=== PATIENT | female | born 1980 | race Caucasian/White ===

== ENCOUNTER 2017-10-02 03:33 | Observation (INO) | payer BC ==
[2017-10-02 04:41] VITALS: BMI 19.8
--- NOTE | 2017-10-02 04:50 | PDOC ---
History of Present Illness - General History Source: Patient Exam Limitations: No Limitations - History of Present Illness Initial Comments: 10/02/17 04:59 The patient is a 36 year old female with no significant PMH who presents to the emergency department with increasing right rib pain and shortness of breath within the past week. She describes her pain as localized right under the lower right ribs with radiation to the middle of her right clavicle. She notes her pain is aggravated by lying down and notes an associated increased difficulty expiring air from her lungs. Of note, the patient reports getting a liver biopsy 9 days ago for evaluation of autoimmune diseases. The patient denies chest pain, headache and dizziness. Denies fever, chills, nausea, vomit, diarrhea and constipation. Denies dysuria, frequency, urgency and hematuria. Allergies: Gatifloxacin Past surgical history: None reported. Social history: No reported cigarette, alcohol, or drug use. PCP: None reported. <Mehran Borges - Last Filed: 10/02/17 04:59> - General History Source: Patient <Vasyl Richardson - Last Filed: 10/02/17 19:27> - General Chief Complaint: Shortness of Breath Stated Complaint: S.O.B. Time Seen by Provider: 10/02/17 04:43 Past History <Mehran Borges - Last Filed: 10/02/17 04:59> - Past Medical History Cardiac Disorders: Yes (Mitral valve prolapse) COPD: No Other medical history: Ciliac disease, MTHFR (methyline tetra hydro folate reductase) - Suicide/Smoking/Psychosocial Hx Smoking History: Never smoked Have you smoked in the past 12 months: No Information on smoking cessation initiated: No Hx Alcohol Use: No Drug/Substance Use Hx: No Substance Use Type: None <Vasyl Richardson - Last Filed: 10/02/17 19:27> - Past Medical History Allergies/Adverse Reactions: Allergies Allergy/AdvReac Type Severity Reaction Status Date / Time gatifloxacin [From Tequin] Allergy Severe Hives Verified 10/02/17 04:36 Home Medications: Ambulatory Orders Ferrous Sulfate, Dried [Iron] 159 mg PO DAILY 10/02/17 Review of Systems - Review of Systems Able to Perform ROS?: Yes Comments:: 10/02/17 05:00 CONSTITUTIONAL: Absent: fever, chills, diaphoresis, generalized weakness, malaise, loss of appetite HEENT: Absent: rhinorrhea, nasal congestion, throat pain, throat swelling, difficulty swallowing, mouth swelling, ear pain, eye pain, visual Changes CARDIOVASCULAR: Absent: chest pain, syncope, palpitations, irregular heart rate, lightheadedness , peripheral edema RESPIRATORY: (+) Shortness of breath. Absent: cough, orthopnea, wheezing, stridor, hemoptysis GASTROINTESTINAL: Absent: abdominal pain, abdominal distension, nausea, vomiting, diarrhea, constipation, melena, hematochezia GENITOURINARY: Absent: dysuria, frequency, urgency, hesitancy, hematuria, flank pain, genital pain MUSCULOSKELETAL: (+) Pain right under the lower right rib with radiation to the middle of the right clavicle. Absent: myalgia, arthralgia, joint swelling SKIN: Absent: rash, itching, pallor HEMATOLOGIC/IMMUNOLOGIC: Absent: easy bleeding, easy bruising, lymphadenopathy, frequent infections ENDOCRINE: Absent: unexplained weight gain, unexplained weight loss, heat intolerance, cold intolerance NEUROLOGIC: Absent: headache, focal weakness or paresthesias, dizziness, unsteady gait, seizure, mental status changes, bladder or bowel incontinence PSYCHIATRIC: Absent: anxiety, depression, suicidal or homicidal ideation, hallucinations. <Mehran Borges - Last Filed: 10/02/17 04:59> *Physical Exam - Vital Signs Last Vital Signs Temp Pulse Resp BP Pulse Ox 98.1 F 93 H 18 121/66 99 10/02/17 04:37 10/02/17 04:37 10/02/17 04:37 10/02/17 04:37 10/02/17 04:37 - Physical Exam Comments: 10/02/17 05:00 GENERAL: (+) Mild respiratory distress on expiration. Well developed, well nourished. Awake and alert. No acute distress. HEENT: Normocephalic, atraumatic. PERRLA, EOMI. No conjunctival pallor. Sclera are non- icteric. Moist mucous membranes. Oropharynx is clear. NECK: Supple. Full ROM. No JVD. Carotid pulses 2+ and symmetric, without bruits. No thyromegaly. No lymphadenopathy. CARDIOVASCULAR: Regular rate and rhythm. No murmurs, rubs, or gallops. Distal pulses are 2+ and symmetric. PULMONARY: (+) Decreased breath sounds to the right lower base. No evidence of respiratory distress. Lungs clear to auscultation bilaterally. No wheezing, rales or rhonchi. ABDOMINAL: Soft. Non-tender. Non-distended. No rebound or guarding. No organomegaly. Normoactive bowel sounds. MUSCULOSKELETAL Normal range of motion at all joints. No bony deformities or tenderness. No CVA tenderness. EXTREMITIES: No cyanosis. No clubbing. No edema. No calf tenderness. SKIN: Warm and dry. Normal capillary refill. No rashes. No jaundice. NEUROLOGICAL: Alert, awake, appropriate. Cranial nerves 2-12 intact. No deficits to light touch and temperature in face, upper extremities and lower extremities. No motor deficits in the in face, upper extremities and lower extremities. Normoreflexic in the upper and lower extremities. Normal speech. Toes are downgoing bilaterally. Gait is normal without ataxia. PSYCHIATRIC: Cooperative. Good eye contact. Appropriate mood and affect. <Mehran Borges - Last Filed: 10/02/17 04:59> - Vital Signs Last Vital Signs Temp Pulse Resp BP Pulse Ox 98.1 F 93 H 18 121/66 99 10/02/17 04:37 10/02/17 04:37 10/02/17 04:37 10/02/17 04:37 10/02/17 04:37 <Vasyl Richardson - Last Filed: 10/02/17 19:27> ED Treatment Course - LABORATORY CBC & Chemistry Diagram: 10/02/17 05:20 10/02/17 05:20 <Vasyl Richardson - Last Filed: 10/02/17 19:27> Medical Decision Making - Medical Decision Making 10/02/17 19:27 Dr. Richardson: The scribe's documentation has been prepared under my direction and personally reviewed by me in its entirery. I confirm that the note above accurately reflects all work, treatment, procedures, and medical decision making performed by me. <Vasyl Richardson - Last Filed: 10/02/17 19:27> *DC/Admit/Observation/Transfer - Attestations Scribe Attestion: 10/02/17 05:00 Documentation prepared by Mehran Borges, acting as medical parasitologist for Vasyl Richardson DO. <Mehran Borges - Last Filed: 10/02/17 04:59> <Vasyl Richardson - Last Filed: 10/02/17 19:27> Diagnosis at time of Disposition: Hemorrhagic ascites, Dyspnea - Discharge Dispostion Condition at time of disposition: Stable
[2017-10-02 04:56] LABS: URINE APPEARANCE CLEAR; URINE BILIRUBIN NEGATIVE (NEGATIVE); URINE BLOOD 2+ (NEGATIVE); URINE COLOR YELLOW; URINE GLUCOSE (UA) NEGATIVE (NEGATIVE); URINE KETONE NEGATIVE (NEGATIVE); URINE LEUK ESTERASE NEGATIVE (NEGATIVE); URINE NITRITE NEGATIVE (NEGATIVE); URINE PROTEIN NEGATIVE (NEGATIVE); URINE UROBILINOGEN NEGATIVE mg/dL (0.2-1.0)
[2017-10-02 05:02] LABS: EPI CELLS RARE /HPF (FEW); URINE MUCUS RARE
[2017-10-02 05:28] LABS: BASO % 0.5 % (0-2.0); EOS % 1.5 % (0-4.5); HEMATOCRIT 33.9 % (32.4-45.2); HEMOGLOBIN 11.1 GM/dL (10.7-15.3); LYMPH % 17.9 % (8-40); MCH 26.3 pg (25.7-33.7); MCHC 32.8 g/dl (32.0-36.0); MEAN PLT VOLUME 9.9 fl (7.5-11.1); MONO % 9.1 % (3.8-10.2); PLATELET COUNT 180 K/MM3 (134-434); RBC 4.24 M/mm3 (3.60-5.2); RDW 19.6 % (11.6-15.6); WHITE BLOOD COUNT 5.1 K/mm3 (4.0-10.0)
[2017-10-02 05:37] LABS: HCG,QUALITATIVE URINE NEGATIVE
[2017-10-02 05:40] LABS: INR 1.02 (0.82-1.09); PROTHROMBIN TIME (PATIENT) 11.5 SEC (9.98-11.88)
[2017-10-02 06:18] LABS: ALK PHOS 33 U/L (45-117); ANION GAP 8 (8-16); BILIRUBIN,TOTAL 0.2 mg/dL (0.2-1.0); BLOOD UREA NITROGEN 17 mg/dL (7-18); CALCIUM 9.4 mg/dL (8.5-10.1); CHLORIDE 107 mmol/L (98-107); CO2 28 mmol/L (21-32); CREATININE 0.7 mg/dL (0.55-1.02); GLUCOSE,RANDOM 75 mg/dL (74-106); SGPT/ALT 17 U/L (12-78); SODIUM 143 mmol/L (136-145); TOT PROT 6.9 g/dl (6.4-8.2)
[2017-10-02 06:22] LABS: POTASSIUM 4.2 mmol/L (3.5-5.1)
[2017-10-02 06:23] LABS: SGOT/AST 18 U/L (15-37)
--- NOTE | 2017-10-02 07:33 | PDOC ---
*Physical Exam - Vital Signs Last Vital Signs Temp Pulse Resp BP Pulse Ox 98.1 F 93 H 18 121/66 99 10/02/17 04:37 10/02/17 04:37 10/02/17 04:37 10/02/17 04:37 10/02/17 04:37 - Physical Exam Comments: 10/02/17 08:05 gen: aaox3, nad heart: +s1s2 reg lungs: cta b/l abd: soft, mild ttp lower abd, no rebound or guarding ext: no c/c/e ED Treatment Course - LABORATORY CBC & Chemistry Diagram: 10/02/17 05:20 10/02/17 05:20 - ADDITIONAL ORDERS Additional order review: Laboratory Results 10/02/17 10/02/17 05:20 04:15 Sodium 143 Potassium 4.2 Chloride 107 Carbon Dioxide 28 Anion Gap 8 BUN 17 Creatinine 0.7 Creat Clearance w eGFR > 60 Random Glucose 75 Calcium 9.4 Total Bilirubin 0.2 AST 18 ALT 17 Alkaline Phosphatase 33 L Total Protein 6.9 Albumin 4.0 Urine Color Yellow Urine Appearance Clear Urine pH 5.0 Ur Specific [place] 1.017 Urine Protein Negative Urine Glucose (UA) Negative Urine Ketones Negative Urine Blood 2+ H Urine Nitrite Negative Urine Bilirubin Negative Urine Urobilinogen Negative Ur Leukocyte Esterase Negative Urine WBC (Auto) <1 Urine RBC (Auto) 1 Ur Epithelial Cells Rare Urine Mucus Rare Urine HCG, Qual Negative 10/02/17 05:20 RBC 4.24 MCV 80.0 MCHC 32.8 RDW 19.6 H MPV 9.9 Neutrophils % 71.0 Lymphocytes % 17.9 Monocytes % 9.1 Eosinophils % 1.5 Basophils % 0.5 Medical Decision Making - Medical Decision Making 10/02/17 07:30 pt signed out from the prior attending pt pending cta chest and abd/pelvis ct called by radiology - chest cta negative for PE abd/pelvis ct shows pelvis ascites that is blood in density no hematoma around the liver 10/02/17 08:06 pts procedure/gi is dr. diaz - call placed to dr. diaz case discussed with dr. aguirre accepts pt to service updated pt on labs and imaging - she is willing to stay for further eval 10/02/17 08:[address] Mathew call placed to dr. mathew 10/02/17 08:[address] Mathew who accepts pt to service *DC/Admit/Observation/Transfer Diagnosis at time of Disposition: Hemorrhagic ascites, Dyspnea - Discharge Dispostion Condition at time of disposition: Fair Admit: Yes - Referrals - Patient Instructions - Post Discharge Activity
--- NOTE | 2017-10-02 08:03 | PDOC ---
*Physical Exam - Vital Signs Last Vital Signs Temp Pulse Resp BP Pulse Ox 98.1 F 93 H 18 121/66 99 10/02/17 04:37 10/02/17 04:37 10/02/17 04:37 10/02/17 04:37 10/02/17 04:37 ED Treatment Course - LABORATORY CBC & Chemistry Diagram: 10/02/17 05:20 10/02/17 05:20 - ADDITIONAL ORDERS Additional order review: Laboratory Results 10/02/17 10/02/17 10/02/17 05:20 05:20 04:15 PT with INR 11.50 INR 1.02 D-Dimer 1280 H Sodium 143 Potassium 4.2 Chloride 107 Carbon Dioxide 28 Anion Gap 8 BUN 17 Creatinine 0.7 Creat Clearance w eGFR > 60 Random Glucose 75 Calcium 9.4 Total Bilirubin 0.2 AST 18 ALT 17 Alkaline Phosphatase 33 L Total Protein 6.9 Albumin 4.0 Urine Color Yellow Urine Appearance Clear Urine pH 5.0 Ur Specific [place] 1.017 Urine Protein Negative Urine Glucose (UA) Negative Urine Ketones Negative Urine Blood 2+ H Urine Nitrite Negative Urine Bilirubin Negative Urine Urobilinogen Negative Ur Leukocyte Esterase Negative Urine WBC (Auto) <1 Urine RBC (Auto) 1 Ur Epithelial Cells Rare Urine Mucus Rare Urine HCG, Qual Negative 10/02/17 05:20 RBC 4.24 MCV 80.0 MCHC 32.8 RDW 19.6 H MPV 9.9 Neutrophils % 71.0 Lymphocytes % 17.9 Monocytes % 9.1 Eosinophils % 1.5 Basophils % 0.5
[2017-10-02] MEDS ORDERED: LACTATED RINGERS SOLUTION 1000 ML INFUS.BAG IV ONE (08:10)
--- NOTE | 2017-10-02 09:19 | HP ---
Admitting History and Physical - Admission Chief Complaint: 35 y.o F came to ER because of severe right sided pleuritic CP last night. D-D 1280. [id number] for PE. History of Present Illness: Iron-def anemia. Splenomegaly Autoimmune Hepatitis. Liver biopsy _p 2 weeks ago celiac History Source: Patient, Medical Record - Past Medical History [employer]ATION ENGINE[employer] CHIEF: No: Alzheimer's, CVA, Dementia, Migraine, Multiple Sclerosis, Peripheral Neuropathy, Parkinson's, Seizure, Syncope, TIA, Vertigo, Other Cardiovascular: No: AFIB, Aneurysm, Aortic Insufficiency, Aortic Stenosis, CAD, CHF, Deep Vein Thrombosis, HTN, Hyperlipdemia, SD, Mitral Insufficiency, Mitral Stenosis, Murmur, Pulmonary Hypertension, Other Pulmonary: No: Asthma, Bronchitis, Cancer, COPD, O2 Dependent, Pneumonia, Previously Intubated, Pulmonary Embolus, Pulmonary Fibrosis, Sleep Apnea, Other Hepatobiliary: Yes: Other (cELIAC, ? HEPATITIS, sPLENOMEGALY) Rheumatology: No: Fibromyalgia, Gout, Lupus, Rheumatoid Arthritis, Sarcoidosis, Vasculitis, Other - Smoking History Smoking history: Never smoked Have you smoked in the past 12 months: No - Alcohol/Substance Use Hx Alcohol Use: No Home Medications - Allergies Allergies/Adverse Reactions: Allergies Allergy/AdvReac Type Severity Reaction Status Date / Time gatifloxacin [From Tequin] Allergy Severe Hives Verified 10/02/17 04:36 - Home Medications Home Medications: Ambulatory Orders Ferrous Sulfate, Dried [Iron] 159 mg PO DAILY 10/02/17 Review of Systems - Review of Systems Constitutional: reports: No Symptoms Eyes: reports: No Symptoms HENT: reports: No Symptoms Neck: reports: No Symptoms Cardiovascular: reports: No Symptoms Respiratory: reports: Other (rIGHT PLEURTIC CHEST PAIN) Gastrointestinal: reports: No Symptoms Genitourinary: reports: No Symptoms Breasts: reports: No Symptoms Reported Integumentary: reports: No Symptoms Neurological: reports: No Symptoms Endocrine: reports: No Symptoms Hematology/Lymphatic: reports: No Symptoms Psychiatric: reports: No Symptoms Physical Examination Vital Signs: Vital Signs Temperature 98.1 F 10/02/17 07:50 Pulse Rate 81 10/02/17 07:50 Respiratory Rate 18 10/02/17 07:50 Blood Pressure 114/65 10/02/17 07:50 O2 Sat by Pulse Oximetry (%) 99 10/02/17 07:50 Constitutional: Yes: Well Nourished, No Distress Eyes: Yes: Conjunctiva Clear, EOM Intact HENT: Yes: Atraumatic, Normocephalic Neck: Yes: Supple, Trachea Midline Cardiovascular: Yes: Regular Rate and Rhythm Respiratory: Yes: Regular, CTA Bilaterally Gastrointestinal: Yes: Normal Bowel Sounds, Soft, Splenomegaly, Other (lIVER 3 CM BELOW COSTAL MARGIN). No: Ascites, Distention, Pulsatile Mass, Tenderness, Tenderness, Epigastrium, Tenderness, Rebound ...Rectal Exam: Yes: Deferred Renal/: No: Anuria Breast(s): Yes: WNL Musculoskeletal: Yes: WNL Extremities: Yes: WNL Edema: No Peripheral Pulses WNL: No Integumentary: Yes: WNL Neurological: Yes: WNL ...Motor Strength: WNL Psychiatric: Yes: WNL Labs: CBC, BMP 10/02/17 05:20 10/02/17 05:20 Imaging - Results Cat Scan: Report Reviewed, Image Reviewed Problem List - Problems (1) Hemorrhagic ascites Assessment/Plan: sMALL ASCITIS IN PELVIS-LIVER BIOPSY 2 WKS AGO. sTABLE h/h Code(s): R18.8 - OTHER ASCITES (2) Pleuritic chest pain Assessment/Plan: nEGATIVE cta- r?o PLEUROSY-vIRAL?, IMMUNE? ETC wILL FOLLOW Code(s): R07.81 - PLEURODYNIA
[2017-10-02] MEDS ORDERED: FERROUS SULFATE DRIED 159 MG PO SCH (10:00)
--- NOTE | 2017-10-02 10:48 | CON.GI ---
Consult Consult Specialty:: Gastroenterology Referred by:: Dr. Babatunde Morales Reason for Consultation:: Right chest pain - History of Present Illness Chief Complaint: Right upper anterior and lateral chest pain aggravated by deep inspiaion, cough and lying supine and on her right side History of Present Illness: 36F developed sharp right anterior and lateral chest pain yesterday. The pain is aggravated by deep inspiration, cough and lying supine or on her right side. She denies fever, chills, a productive cough or coryza. No abdominal pain. She had the flu 2 week ago. She underwent a liver biopsy with my associate Dr Sumit Munoz 09/23/17 to exclude liver disease as the cause of her splenomegaly. The biopsy was normal but she did develop bleeding that tracked into her pelvis. She did have pain at that time and was followed by Dr Munoz. That pain has resolved and not recurred. She does have celiac disease and a thrombotic condition, MTHFR and multiple autoimmune serologies including BRANDON and mitochondrial antibody. - History Source History Provided By: Patient Limitations to Obtaining History: No Limitations - Past Medical History Cardio/Vascular: Yes: Other (mitral valve prolapse) Gastrointestinal: Yes: Other (Celiac disease) Hepatobiliary: Yes: Other (Splenomegaly, normal liver biopsy ( see attached path )) Heme/Onc: Yes: Hypercoaguable State (MTHFR), Thrombocytopenia - Past Surgical History Past Surgical History: Yes: None - Alcohol/Substance Use Hx Alcohol Use: Yes (rarely) History of Substance Use: reports: None - Smoking History Smoking history: Never smoked Have you smoked in the past 12 months: No - Social History Usual Living Arrangement: With Spouse ADL: Independent Occupation: vocal teacher Place of : [facility] History of Recent Travel: No Home Medications - Allergies Allergies/Adverse Reactions: Allergies Allergy/AdvReac Type Severity Reaction Status Date / Time gatifloxacin [From Tequin] Allergy Severe Hives Verified 10/02/17 04:36 - Home Medications Home Medications: Ambulatory Orders Ferrous Sulfate, Dried [Iron] 159 mg PO DAILY 10/02/17 Family Disease History - Family Disease History Family Disease History: Other: Father (MTHFR gene), Mother (MTHFR gene, RA), Sister (Hyperthyroidism rx'ed GORMAN) Other Family History: GF of pancreatic cancer. GM of lymphoma. Aunt had leukemia Review of Systems - Review of Systems Constitutional: reports: No Symptoms Eyes: reports: No Symptoms HENT: reports: No Symptoms Neck: reports: No Symptoms Cardiovascular: reports: Chest Pain (pleuritic) Respiratory: reports: Cough (nonproductive) Gastrointestinal: reports: Abdominal Pain (pain afrter liver biopsy has resolved ) Physical Exam-GI Vital Signs: Vital Signs Temperature 98.1 F 10/02/17 07:50 Pulse Rate 81 10/02/17 07:50 Respiratory Rate 18 10/02/17 07:50 Blood Pressure 114/65 10/02/17 07:50 O2 Sat by Pulse Oximetry (%) 99 10/02/17 07:50 CBC,CMP WBC 5.1 K/mm3 (4.0-10.0) 10/02/17 05:20 RBC 4.24 M/mm3 (3.60-5.2) 10/02/17 05:20 Hgb 11.1 GM/dL (10.7-15.3) 10/02/17 05:20 Hct 33.9 % (32.4-45.2) 10/02/17 05:20 MCV 80.0 fl (80-96) 10/02/17 05:20 MCH 26.3 pg (25.7-33.7) 10/02/17 05:20 MCHC 32.8 g/dl (32.0-36.0) 10/02/17 05:20 RDW 19.6 % (11.6-15.6) H 10/02/17 05:20 Plt Count 180 K/MM3 (134-434) 10/02/17 05:20 MPV 9.9 fl (7.5-11.1) 10/02/17 05:20 Neutrophils % 71.0 % (42.8-82.8) 10/02/17 05:20 Lymphocytes % 17.9 % (8-40) 10/02/17 05:20 Monocytes % 9.1 % (3.8-10.2) 10/02/17 05:20 Eosinophils % 1.5 % (0-4.5) 10/02/17 05:20 Basophils % 0.5 % (0-2.0) 10/02/17 05:20 Sodium 143 mmol/L (136-145) 10/02/17 05:20 Potassium 4.2 mmol/L (3.5-5.1) 10/02/17 05:20 Chloride 107 mmol/L (98-107) 10/02/17 05:20 Carbon Dioxide 28 mmol/L (21-32) 10/02/17 05:20 Anion Gap 8 (8-16) 10/02/17 05:20 BUN 17 mg/dL (7-18) 10/02/17 05:20 Creatinine 0.7 mg/dL (0.55-1.02) 10/02/17 05:20 Creat Clearance w eGFR > 60 (>60) 10/02/17 05:20 Random Glucose 75 mg/dL (74-106) 10/02/17 05:20 Calcium 9.4 mg/dL (8.5-10.1) 10/02/17 05:20 Total Bilirubin 0.2 mg/dL (0.2-1.0) 10/02/17 05:20 AST 18 U/L (15-37) 10/02/17 05:20 ALT 17 U/L (12-78) 10/02/17 05:20 Alkaline Phosphatase 33 U/L (45-117) L 10/02/17 05:20 Total Protein 6.9 g/dl (6.4-8.2) 10/02/17 05:20 Albumin 4.0 g/dl (3.4-5.0) 10/02/17 05:20 Current Medications Generic Name Dose Route Start Last Admin Trade Name Freq PRN Reason Stop Dose Admin Non-Formulary Medication 159 mg 10/02/17 10:00 Ferrous Sulfate, Dried [Iron] PO DAILY HATTIE Constitutional: Yes: Calm Eyes: Yes: Conjunctiva Clear HENT: Yes: Atraumatic Neck: Yes: Supple Cardiovascular: Yes: Regular Rate and Rhythm Respiratory: Yes: CTA Bilaterally ...Auscultate: Yes: Normoactive Bowel Sounds ...Palpate: Yes: Soft, Other ...Rectal Exam: Yes: Deferred (patient is menstruating) Edema: No Peripheral Pulses WNL: Yes Psychiatric: Yes: Alert Labs: CBC, BMP 10/02/17 05:20 10/02/17 05:20 INR, PTT INR 1.02 (0.82-1.09) 10/02/17 05:20 Laboratory Tests 03/02/11 03/03/11 10/02/17 08:00 09:25 05:20 Hgb 12.3 10.9 D 11.1 Imaging - Results Cat Scan: Report Reviewed (Noa Weaver Name: [facility] DEPARTMENT OF RADIOLOGY Phys: Vasyl Richardson MD : 1980 Age: 36 Sex: F [facility] Acct: [id number] Loc: [address] Exam Date: 10/02/17 Status: [place] [address] Unit Number: [id number] EXAM#: TYPE/ EXAM: RESULT: CT/ABDOMEN PELVIS CT WITH CONTR CT/CHEST CTA Status post liver biopsy. Rule out PE. CT scan of the chest following intravenous contrast. A post intravenous contrast CT angiogram of the chest was performed utilizing pulmonary embolus protocol. Coronal/ sagittal reconstruction images were obtained. 19 cc of Omnipaque 350 was intravenously injected with a CT angiogram of the chest, abdomen and pelvis Compared to prior T scan of the chest following intravenous contrast dated 2006 No gross filling defect is seen within the main pulmonary artery and its proximal branches. The thoracic and visualized portion of the upper abdominal aorta is normally enhanced without evidence of aneurysmal dilatation or dissection. The heart is within normal limits in size. No gross mediastinal or hilar enlarged lymph nodes are identified. The lung is clear. No pneumothorax or pleural effusion is seen, bilaterally. Visualized osseous structures appear intact IMPRESSION: Unremarkable examination. There is no evidence of a pulmonary embolus within the main pulmonary artery and its proximal branches, bilaterally A preliminary report was forwarded by the [facility], IMAGING PRESS OPERATOR A CT scan of the abdomen and pelvis following intravenous contrast administration was also obtained. Coronal and sagittal reformatted images were obtained Comparison: Prior CT scan of the abdomen pelvis dated 04/04/2013 Visualized lung base appears unremarkable and the heart is within normal limits in size. The liver is slightly enlarged measuring 18 cm in craniocaudal length with homogeneous enhancement. Minimal dilatation of the central intrahepatic bile ducts without dilatation of the common bile duct that measures 4.7 mm in diameter, best visualized on the coronal reformatted images. The spleen is enlarged measuring 16 cm in craniocaudal length. On prior examinations measured 13.5 cm . The stomach is not distended and hence its wall cannot be evaluated. The pancreas , gallbladder, both adrenal glands and both kidneys appear grossly unremarkable There is no evidence of small bowel obstruction. Moderate amount of fluid of fecal residue in the colon without gross wall thickening. Normal appearing retroverted uterus. Normal size ovaries with a cyst/dominant follicle in the left ovary measuring 1.1 cm and a larger one in the right ovary measuring 2.3 x 1.1 cm. Note is made of a tampon in the vaginal canal. Empty urinary bladder and hence its wall cannot be evaluated on this exam. Imaging electronic publisher preliminary report mentioned a Cedillo catheter in the urinary bladder. No Cedillo catheter is identified. Correlate clinically. There is a small to moderate amount of fluid in the lower pelvis/cul-de-sac. Visualized osseous structures appear intact. IMPRESSION: Mild hepatomegaly. No focal intraparenchymal abnormal attenuation is present to suggest intraparenchymal hemorrhage. No surrounding free fluid or extraluminal air is present.Minimal dilatation of the central intrahepatic bile ducts without dilatation of the common bile duct. Splenomegaly. Small to moderate amount of free fluid in the pelvis measuring approximately 57 Hounsfield units suspicious for hemorrhage in the postbiopsy patient. Correlate clinically and follow-up is needed. Follow-up is needed. Small simple cyst/follicle in the left ovary measuring 1.1 cm and a larger cyst/dominant follicle in the right ovary measuring 2.3 x 1.1 cm. Constipation A preliminary report was forwarded by the [employer] service, IMAGING PRESS OPERATOR Reported By: Chris Chopra MD 10/02/17935 Technologist: Nicolle Thompson Transcribed Date/Time: 10/02/17935 [employer]: Chris Chopra Printed Date/Time: By: Signed by: Chris Chopra Signed on: 02-Oct-2017 09:37) Assessment/Plan The blood in the pelvis reflects residual from her liver biopsy but I do not believe that they are the source of her current symptoms. I believe that she has pleurodynia due to a viral infection. The pericardium does not appear enlarged by the chest CT so doubt pericarditis. If her symptoms persist then further evaluation for vasculitis is merited. I have discussed the case with Dr. Morales, Dr Mckeon and Dr. Cody. We mutually agree that the patient can be discharged on NSAIDs. Her splenomegaly and MTHFR raises concern for a splenic vein thrombosis but none is evident on the CT. She can followup with Dr Munoz.
--- NOTE | 2017-10-02 10:57 | CONSULT ---
Consultation: REQUESTING PROVIDER: CONSULT REQUEST: We have been asked to medically evaluate this patient for GI HISTORY OF PRESENT ILLNESS: 36 yo F with presents to [facility] ER with complaints of chest pain. She describes 8/ 10 intermittent right sided chest pain that is worse with deep inspiration and lying flat. No alleviating factors. CTA of chest, abdomen, and pelvis shows no PE, plueral or pericardial effusion but does show some blood in pelvis. Denies fever,chills, nausea, vomiting, diarrhea or constipation. We are called for because of recent liver biopsy done on 09/22/17. Liver biopsy was done for possible splenomegally and possible Autoimmune Hepatitis. However biopsy did not show signs of hepatitis. She does have history of celiac disease diagnosed in 2014 by biopsy. No colonoscopy done in past. She does mention recent URI 2 weeks ago. No recent travel. Allergies: Gatifloxacin ( palpitations) PMHx: Celiac disease, MTHFR gene mutation(hypercoag.), iron def. anemia. 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 Family History: Mother- JRA, Father- MTHFR gene mutation, stroke. Grandmother- Lymphoma, Grandfather- pancreatic ca., Sister-thyroid and sarcoidosis Brother- spina bifida oculta. REVIEW OF SYSTEMS: CONSTITUTIONAL: Absent: fever, chills, diaphoresis, generalized weakness, malaise, loss of appetite, weight change HEENT: Absent: rhinorrhea, nasal congestion, throat pain, throat swelling, difficulty swallowing, mouth swelling, ear pain, eye pain, visual changes CARDIOVASCULAR:+ chest pain Absent:, syncope, palpitations, irregular heart rate, lightheadedness, peripheral edema RESPIRATORY: +plueritic pain on deep inspiration. Absent: cough, shortness of breath, dyspnea with exertion, orthopnea, wheezing, stridor, hemoptysis GASTROINTESTINAL: Absent: abdominal pain, abdominal distension, nausea, vomiting, diarrhea, constipation, melena, hematochezia GENITOURINARY: Absent: dysuria, frequency, urgency, hesitancy, hematuria, flank pain, genital pain MUSCULOSKELETAL: Absent: myalgia, arthralgia, joint swelling, back pain, neck pain SKIN: Absent: rash, itching, pallor HEMATOLOGIC/IMMUNOLOGIC: Absent: easy bleeding, easy bruising, lymphadenopathy, frequent infections ENDOCRINE: Absent: unexplained weight gain, unexplained weight loss, heat intolerance, cold intolerance NEUROLOGIC: Absent: headache, focal weakness or paresthesias, dizziness, unsteady gait, seizure, mental status changes, bladder or bowel incontinence PSYCHIATRIC: Absent: anxiety, depression, suicidal or homicidal ideation, hallucinations. PHYSICAL EXAMINATION Vital Signs - 24 hr 10/02/17 10:00 Temperature 98.1 F Pulse Rate 75 Pulse Rate [ 75 Left Radial] Respiratory 18 Rate Blood Pressure Blood Pressure 114/65 [Right Arm] O2 Sat by Pulse 100 Oximetry (%) GENERAL: AAOx3, NAD HEAD: NC/AT EYES: PERRLA, EOMI, Anicteric sclera EARS, NOSE, THROAT: Moist mucous membranes. NECK: supple without lymphadenopathy, JVD, or masses. LUNGS: CTAB, No wheezing or rales. HEART:RRR, NL S1S2, no m/g/r ABDOMEN: Soft, mild RLQ tendereness on deep palpation. not distended, normoactive bowel sounds, no guarding, no rebound, no masses. MUSCULOSKELETAL: No CVA tenderness. LOWER EXTREMITIES: 2+ pulses, warm, well-perfused. No calf tenderness. No peripheral edema. NEUROLOGICAL: Cranial nerves II-XII intact. Normal speech. PSYCHIATRIC: Cooperative. Good eye contact. Appropriate mood and affect. SKIN: Warm, dry, normal turgor, no rashes or lesions noted. Laboratory Results - last 24 hr 10/02/17 10/02/17 10/02/17 04:15 05:20 05:20 WBC 5.1 RBC 4.24 Hgb 11.1 Hct 33.9 MCV 80.0 MCH 26.3 MCHC 32.8 RDW 19.6 H Plt Count 180 MPV 9.9 Neutrophils % 71.0 Lymphocytes % 17.9 Monocytes % 9.1 Eosinophils % 1.5 Basophils % 0.5 PT with INR 11.50 INR 1.02 D-Dimer 1280 H Sodium Potassium Chloride Carbon Dioxide Anion Gap BUN Creatinine Creat Clearance w eGFR Random Glucose Calcium Total Bilirubin AST ALT Alkaline Phosphatase Total Protein Albumin Urine Color Yellow Urine Appearance Clear Urine pH 5.0 Ur Specific [place] 1.017 Urine Protein Negative Urine Glucose (UA) Negative Urine Ketones Negative Urine Blood 2+ H Urine Nitrite Negative Urine Bilirubin Negative Urine Urobilinogen Negative Ur Leukocyte Esterase Negative Urine WBC (Auto) <1 Urine RBC (Auto) 1 Ur Epithelial Cells Rare Urine Mucus Rare Urine HCG, Qual Negative 10/02/17 05:20 WBC RBC Hgb Hct MCV MCH MCHC RDW Plt Count MPV Neutrophils % Lymphocytes % Monocytes % Eosinophils % Basophils % PT with INR INR D-Dimer Sodium 143 Potassium 4.2 Chloride 107 Carbon Dioxide 28 Anion Gap 8 BUN 17 Creatinine 0.7 Creat Clearance w eGFR > 60 Random Glucose 75 Calcium 9.4 Total Bilirubin 0.2 AST 18 ALT 17 Alkaline Phosphatase 33 L Total Protein 6.9 Albumin 4.0 Urine Color Urine Appearance Urine pH Ur Specific [place] Urine Protein Urine Glucose (UA) Urine Ketones Urine Blood Urine Nitrite Urine Bilirubin Urine Urobilinogen Ur Leukocyte Esterase Urine WBC (Auto) Urine RBC (Auto) Ur Epithelial Cells Urine Mucus Urine HCG, Qual Active Medications Generic Name Dose Route Start Last Admin Trade Name Freq PRN Reason Stop Dose Admin Non-Formulary Medication 159 mg 10/02/17 10:00 Ferrous Sulfate, Dried [Iron] PO DAILY HATTIE IMAGING: * [id number] CT/ABDOMEN PELVIS CT WITH CONTR [id number] CT/CHEST CTA ADDENDUM * ADDENDUM #1 Addendum: Notes made of prominent vessels/veins in the splenic hilum which are nonspecific. They may represent early varices if the patient has liver cirrhosis. Correlate clinically ORIGINAL REPORT Status post liver biopsy. Rule out PE. CT scan of the chest following intravenous contrast. A post intravenous contrast CT angiogram of the chest was performed utilizing pulmonary embolus protocol. Coronal/ sagittal reconstruction images were obtained. 19 cc of Omnipaque 350 was intravenously injected with a CT angiogram of the chest, abdomen and pelvis Compared to prior T scan of the chest following intravenous contrast dated 11/04/2006 No gross filling defect is seen within the main pulmonary artery and its proximal branches. The thoracic and visualized portion of the upper abdominal aorta is normally enhanced without evidence of aneurysmal dilatation or dissection. The heart is within normal limits in size. No gross mediastinal or hilar enlarged lymph nodes are identified. The lung is clear. No pneumothorax or pleural effusion is seen, bilaterally. Visualized osseous structures appear intact IMPRESSION: Unremarkable examination. There is no evidence of a pulmonary embolus within the main pulmonary artery and its proximal branches, bilaterally A preliminary report was forwarded by the [employer] service, IMAGING TRUCK TRAILER FINAL INSPECTOR A CT scan of the abdomen and pelvis following intravenous contrast administration was also obtained. Coronal and sagittal reformatted images were obtained Comparison: Prior CT scan of the abdomen pelvis dated 04/04/2013 Visualized lung base appears unremarkable and the heart is within normal limits in size. The liver is slightly enlarged measuring 18 cm in craniocaudal length with homogeneous enhancement. Minimal dilatation of the central intrahepatic bile ducts without dilatation of the common bile duct that measures 4.7 mm in diameter, best visualized on the coronal reformatted images. The spleen is enlarged measuring 16 cm in craniocaudal length. On prior examinations measured 13.5 cm . The stomach is not distended and hence its wall cannot be evaluated. The pancreas, gallbladder, both adrenal glands and both kidneys appear grossly unremarkable There is no evidence of small bowel obstruction. Moderate amount of fluid of fecal residue in the colon without gross wall thickening. Normal appearing retroverted uterus. Normal size ovaries with a cyst/dominant follicle in the left ovary measuring 1.1 cm and a larger one in the right ovary measuring 2.3 x 1.1 cm. Note is made of a tampon in the vaginal canal. Empty urinary bladder and hence its wall cannot be evaluated on this exam. Imaging motion picture set up worker preliminary report mentioned a Cedillo catheter in the urinary bladder. No Cedillo catheter is identified. Correlate clinically. There is a small to moderate amount of fluid in the lower pelvis/cul-de-sac. Visualized osseous structures appear intact. IMPRESSION: Mild hepatomegaly. No focal intraparenchymal abnormal attenuation is present to suggest intraparenchymal hemorrhage. No surrounding free fluid or extraluminal air is present.Minimal dilatation of the central intrahepatic bile ducts without dilatation of the common bile duct. Splenomegaly. Small to moderate amount of free fluid in the pelvis measuring approximately 57 Hounsfield units suspicious for hemorrhage in the postbiopsy patient. Correlate clinically and follow-up is needed. Follow-up is needed. Small simple cyst/follicle in the left ovary measuring 1.1 cm and a larger cyst/dominant follicle in the right ovary measuring 2.3 x 1.1 cm. Constipation A preliminary report was forwarded by the [employer] service, IMAGING TRUCK TRAILER FINAL INSPECTOR Reported By: Chris Chopra MD 10/02/17 1103 Status post liver biopsy. Rule out PE. CT scan of the chest following intravenous contrast. A post intravenous contrast CT angiogram of the chest was performed utilizing pulmonary embolus protocol. Coronal/ sagittal reconstruction images were obtained. 19 cc of Omnipaque 350 was intravenously injected with a CT angiogram of the chest, abdomen and pelvis Compared to prior T scan of the chest following intravenous contrast dated 11/04/2006 No gross filling defect is seen within the main pulmonary artery and its proximal branches. The thoracic and visualized portion of the upper abdominal aorta is normally enhanced without evidence of aneurysmal dilatation or dissection. The heart is within normal limits in size. No gross mediastinal or hilar enlarged lymph nodes are identified. The lung is clear. No pneumothorax or pleural effusion is seen, bilaterally. Visualized osseous structures appear intact IMPRESSION: Unremarkable examination. There is no evidence of a pulmonary embolus within the main pulmonary artery and its proximal branches, bilaterally A preliminary report was forwarded by the [employer] service, IMAGING TRUCK TRAILER FINAL INSPECTOR A CT scan of the abdomen and pelvis following intravenous contrast administration was also obtained. Coronal and sagittal reformatted images were obtained Comparison: Prior CT scan of the abdomen pelvis dated 04/04/2013 Visualized lung base appears unremarkable and the heart is within normal limits in size. The liver is slightly enlarged measuring 18 cm in craniocaudal length with homogeneous enhancement. Minimal dilatation of the central intrahepatic bile ducts without dilatation of the common bile duct that measures 4.7 mm in diameter, best visualized on the coronal reformatted images. The spleen is enlarged measuring 16 cm in craniocaudal length. On prior examinations measured 13.5 cm . The stomach is not distended and hence its wall cannot be evaluated. The pancreas, gallbladder, both adrenal glands and both kidneys appear grossly unremarkable There is no evidence of small bowel obstruction. Moderate amount of fluid of fecal residue in the colon without gross wall thickening. Normal appearing retroverted uterus. Normal size ovaries with a cyst/dominant follicle in the left ovary measuring 1.1 cm and a larger one in the right ovary measuring 2.3 x 1.1 cm. Note is made of a tampon in the vaginal canal. Empty urinary bladder and hence its wall cannot be evaluated on this exam. Imaging motion picture set up worker preliminary report mentioned a Cedillo catheter in the urinary bladder. No Cedillo catheter is identified. Correlate clinically. There is a small to moderate amount of fluid in the lower pelvis/cul-de-sac. Visualized osseous structures appear intact. IMPRESSION: Mild hepatomegaly. No focal intraparenchymal abnormal attenuation is present to suggest intraparenchymal hemorrhage. No surrounding free fluid or extraluminal air is present.Minimal dilatation of the central intrahepatic bile ducts without dilatation of the common bile duct. Splenomegaly. Small to moderate amount of free fluid in the pelvis measuring approximately 57 Hounsfield units suspicious for hemorrhage in the postbiopsy patient. Correlate clinically and follow-up is needed. Follow-up is needed. Small simple cyst/follicle in the left ovary measuring 1.1 cm and a larger cyst/ dominant follicle in the right ovary measuring 2.3 x 1.1 cm. Constipation A preliminary report was forwarded by the [employer] service, IMAGING TRUCK TRAILER FINAL INSPECTOR Reported By: Chris Chopra MD 10/02/17 0936 ASSESSMENT: 36 yo F presents with pleuritic chest pain in the setting of liver biopsy * Given that the pain from biopsy was completely resolved prior to yesterday makes the biopsy as culprit unlikely. * Blood seen in pelvis is residual from biopsy but no active bleed. * Pleurodesis most likely 2/2 viral URI. Plan: * Ok to be discharged from GI standpoint * NSAIDs for pain control. * Follow up with Dr. Munoz in one week. Dispo: We will continue to follow the patient. Thank you for this consultative opportunity. <Brian Mckeon - Last Filed: 10/02/17 11:09> Consultation: REQUESTING PROVIDER: CONSULT REQUEST: We have been asked to medically evaluate this patient for ( specify). HISTORY OF PRESENT ILLNESS: REVIEW OF SYSTEMS: CONSTITUTIONAL: Absent: fever, chills, diaphoresis, generalized weakness, malaise, loss of appetite, weight change HEENT: Absent: rhinorrhea, nasal congestion, throat pain, throat swelling, difficulty swallowing, mouth swelling, ear pain, eye pain, visual changes CARDIOVASCULAR: Absent: chest pain, syncope, palpitations, irregular heart rate, lightheadedness , peripheral edema RESPIRATORY: Absent: cough, shortness of breath, dyspnea with exertion, orthopnea, wheezing, stridor, hemoptysis GASTROINTESTINAL: Absent: abdominal pain, abdominal distension, nausea, vomiting, diarrhea, constipation, melena, hematochezia GENITOURINARY: Absent: dysuria, frequency, urgency, hesitancy, hematuria, flank pain, genital pain MUSCULOSKELETAL: Absent: myalgia, arthralgia, joint swelling, back pain, neck pain SKIN: Absent: rash, itching, pallor HEMATOLOGIC/IMMUNOLOGIC: Absent: easy bleeding, easy bruising, lymphadenopathy, frequent infections ENDOCRINE: Absent: unexplained weight gain, unexplained weight loss, heat intolerance, cold intolerance NEUROLOGIC: Absent: headache, focal weakness or paresthesias, dizziness, unsteady gait, seizure, mental status changes, bladder or bowel incontinence PSYCHIATRIC: Absent: anxiety, depression, suicidal or homicidal ideation, hallucinations. PHYSICAL EXAMINATION Vital Signs - 24 hr 10/02/17 10/02/17 04:37 07:50 Temperature 98.1 F 98.1 F Pulse Rate 93 H 81 Pulse Rate [ 81 Left Radial] Respiratory 18 18 Rate Blood Pressure 121/66 Blood Pressure 114/65 [Right Arm] O2 Sat by Pulse 99 99 Oximetry (%) GENERAL: Awake, alert, and fully oriented, in no acute distress. HEAD: Normal with no signs of trauma. EYES: Pupils equal, round and reactive to light, extraocular movements intact, sclera anicteric, conjunctiva clear. No lid lag. EARS, NOSE, THROAT: Ears normal, nares patent, oropharynx clear without exudates. Moist mucous membranes. NECK: Normal range of motion, supple without lymphadenopathy, JVD, or masses. LUNGS: Breath sounds equal, clear to auscultation bilaterally. No wheezes, and no crackles. No accessory muscle use. HEART: Regular rate and rhythm, normal S1 and S2 without murmur, rub or gallop. ABDOMEN: Soft, nontender, not distended, normoactive bowel sounds, no guarding, no rebound, no masses. No hepatomegaly or splenomegaly. MUSCULOSKELETAL: Normal range of motion at all joints. No bony deformities or tenderness. No CVA tenderness. UPPER EXTREMITIES: 2+ pulses, warm, well-perfused. No cyanosis. No clubbing. Cap refill <2 seconds. No peripheral edema. LOWER EXTREMITIES: 2+ pulses, warm, well-perfused. No calf tenderness. No peripheral edema. NEUROLOGICAL: Cranial nerves II-XII intact. Normal speech. Normal gait. PSYCHIATRIC: Cooperative. Good eye contact. Appropriate mood and affect. SKIN: Warm, dry, normal turgor, no rashes or lesions noted. Laboratory Results - last 24 hr 10/02/17 10/02/17 10/02/17 04:15 05:20 05:20 WBC 5.1 RBC 4.24 Hgb 11.1 Hct 33.9 MCV 80.0 MCH 26.3 MCHC 32.8 RDW 19.6 H Plt Count 180 MPV 9.9 Neutrophils % 71.0 Lymphocytes % 17.9 Monocytes % 9.1 Eosinophils % 1.5 Basophils % 0.5 PT with INR 11.50 INR 1.02 D-Dimer 1280 H Sodium Potassium Chloride Carbon Dioxide Anion Gap BUN Creatinine Creat Clearance w eGFR Random Glucose Calcium Total Bilirubin AST ALT Alkaline Phosphatase Total Protein Albumin Urine Color Yellow Urine Appearance Clear Urine pH 5.0 Ur Specific [place] 1.017 Urine Protein Negative Urine Glucose (UA) Negative Urine Ketones Negative Urine Blood 2+ H Urine Nitrite Negative Urine Bilirubin Negative Urine Urobilinogen Negative Ur Leukocyte Esterase Negative Urine WBC (Auto) <1 Urine RBC (Auto) 1 Ur Epithelial Cells Rare Urine Mucus Rare Urine HCG, Qual Negative 10/02/17 05:20 WBC RBC Hgb Hct MCV MCH MCHC RDW Plt Count MPV Neutrophils % Lymphocytes % Monocytes % Eosinophils % Basophils % PT with INR INR D-Dimer Sodium 143 Potassium 4.2 Chloride 107 Carbon Dioxide 28 Anion Gap 8 BUN 17 Creatinine 0.7 Creat Clearance w eGFR > 60 Random Glucose 75 Calcium 9.4 Total Bilirubin 0.2 AST 18 ALT 17 Alkaline Phosphatase 33 L Total Protein 6.9 Albumin 4.0 Urine Color Urine Appearance Urine pH Ur Specific [place] Urine Protein Urine Glucose (UA) Urine Ketones Urine Blood Urine Nitrite Urine Bilirubin Urine Urobilinogen Ur Leukocyte Esterase Urine WBC (Auto) Urine RBC (Auto) Ur Epithelial Cells Urine Mucus Urine HCG, Qual Active Medications Generic Name Dose Route Start Last Admin Trade Name Freq PRN Reason Stop Dose Admin Non-Formulary Medication 159 mg 10/02/17 10:00 Ferrous Sulfate, Dried [Iron] PO DAILY HATTIE ASSESSMENT/PLAN: Dispo: We will continue to follow the patient. Thank you for this consultative opportunity. The proper term above is pleurodynia not pleurodesis. The discharge plan was discussed with Dr. Morales and Dr Cody and with the patient. She will followup in our office <Blanca Garza - Last Filed: 10/02/17 12:29> Visit type - Emergency Visit Emergency Visit: Yes ED Registration Date: 10/02/17 Care time: The patient presented to the Emergency Department on the above date and was hospitalized for further evaluation of their emergent condition. - New Patient This patient is new to me today: Yes Date on this admission: 10/02/17 - Critical Care Critical Care patient: No <Brian Mckeon - Last Filed: 10/02/17 11:09>
--- NOTE | 2017-10-02 11:11 | DS ---
Physical Examination Vital Signs: Vital Signs Temperature 98.1 F 10/02/17 07:50 Pulse Rate 81 10/02/17 07:50 Respiratory Rate 18 10/02/17 07:50 Blood Pressure 114/65 10/02/17 07:50 O2 Sat by Pulse Oximetry (%) 99 10/02/17 07:50 Findings/Remarks: pATIENT WAS DISCUSSED WITH dR Dara Michel d/c HOME AND FOLLOW IN THE OFFICE IN am Constitutional: Yes: Well Nourished, Anxious Eyes: Yes: Conjunctiva Clear, EOM Intact HENT: Yes: Atraumatic, Pharyngeal Erythema Neck: Yes: Supple, Trachea Midline Cardiovascular: Yes: Regular Rate and Rhythm Respiratory: Yes: Regular, CTA Bilaterally, Other (ruq PAIN) Gastrointestinal: Yes: Normal Bowel Sounds, Soft, Splenomegaly. No: Abdomen, Obese, Palpable Mass, Tenderness ...Rectal Exam: Yes: Deferred Musculoskeletal: Yes: WNL. No: Back Pain Integumentary: Yes: WNL Neurological: Yes: WNL Psychiatric: Yes: WNL Labs: CBC, BMP 10/02/17 05:20 10/02/17 05:20 Discharge Summary Reason For Visit: HEMORRHAGIC ASCITES, pLEURITIC CHEST PAIN Current Active Problems Dyspnea (Acute) Hemorrhagic ascites (Acute) Condition: Fair - Instructions Disposition: HOME - Home Medications Comprehensive Discharge Medication List: Ambulatory Orders Ferrous Sulfate, Dried [Iron] 159 mg PO DAILY 10/02/17
[2017-10-02 13:40] VITALS: BP 116/65; PULSE 73; TEMP 97.9
== END 2017-10-02 12:00 | disposition home or self-care (01) ==
LOC: JER 03:33 → JERBED 08:07 → UNDOADMOB 08:07 → OBSVTOIN 08:42 → INTOOBSV 08:42 → JERBED 11:07 → UNDODISOB 12:00
PROVIDERS: ADMIT Internal Medicine; ATTEND Internal Medicine
PROC: 3E0337Z Introduction of Electrolytic and Water Balance Substance into Peripheral Vein, Percutaneous Approach (ICD-10-PCS; principal; 2017-10-02)
DX: R18.8 Other ascites (principal); R07.81 Pleurodynia; I34.1 Nonrheumatic mitral (valve) prolapse; E72.12 Methylenetetrahydrofolate reductase deficiency; Z88.8 Allergy status to other drugs, medicaments and biological substances
CPT/HCPCS: 36415; 71275-TC; 74177-TC; 80053; 81003; 81015; 84703; 85025; 85379; 85610; 99285-25; G0378